=== PATIENT | female | born 1965 | race Caucasian/White ===

== ENCOUNTER 2020-09-12 09:56 | Emergency (ER) | payer OTHER ==
[~2020-09-12] VITALS: Ht 165.1 cm; Wt 127.0 kg
[~2020-09-12 09:56] MED LIST: ACET325 PO; ALBU4; ALBU90OI INH; AMOX500 PO; AZIT250 PO; AZIT500 PO; CIPHYDOTSU OT; CYCL10 PO; Cyclobenzaprine5 MG PO; GABA300 PO; HYDACE5 PO; HYDR1TAB94 PO; IBUP600 PO; LEVSOD125 PO; LEVSOD200 PO; METPRE4DP PO; NEOPOLHYDS OT; Norco 5-325 Ta1 EACH PO; OXYACE5T PO; PRIMATINE MIST; PSEU120ER PO; SIMV5 PO; SULTRIDS PO; TIOT18 INH; WARF7.5 PO
[2020-09-12] MEDS ORDERED: Percocet 5-3251 EACH PO (12:15)
== END 2020-09-12 13:24 | disposition home or self-care (01) ==
LOC: ER 09:56
DX: M79.672 Pain in left foot (principal); Z79.899 Other long term (current) drug therapy; Z88.6 Allergy status to analgesic agent
CPT/HCPCS: 73610; 73630; 93971; 99284-25; A9270

== ENCOUNTER 2021-09-18 10:04 | Emergency (ER) | payer OTHER ==
[~2021-09-18] VITALS: Ht 172.7 cm; Wt 127.0 kg
[~2021-09-18 10:04] MED LIST changes: +Percocet 5-3251 EACH PO
[2021-09-18] MEDS ORDERED: LISI20 PO (10:24)
[2021-09-18] MEDS ORDERED: HYDCHL25 PO (10:24)
[2021-09-18] MEDS ORDERED: TIZANIDINE HCL2 MG PO (10:25)
[2021-09-18] MEDS ORDERED: ZOCOR20 MG PO (10:25)
[2021-09-18 10:45] LABS: BASOPHILS ABSOLUTE AUTO 0.06 K/mm3 (0.00-0.23); BASOPHILS PERCENT AUTO 1 % (0-2); EOSINOPHILS ABSOLUTE AUTO 0.13 K/mm3 (0.00-0.68); EOSINOPHILS PERCENT AUTO 1 % (0-6); Hematocrit 32.2 % (33.0-51.0); Hemoglobin 10.7 g/dL (11.5-16.0); IMMATURE GRAN ABSOLUTE AUTO 0.07 K/mm3 (0.00-0.10); IMMATURE GRAN PERCENT AUTO 1 % (0-1); LYMPHOCYTES PERCENT AUTO 20 % (21-46); MONOCYTES PERCENT AUTO 9 % (4-13); Mean Corpuscular HGB 30.6 pg (26.0-34.0); Mean Corpuscular HGB Conc 33.2 g/dL (31.5-36.5); Mean Corpuscular Volume 92 fL (80-100); Mean Platelet Volume 10.2 fL (9.1-12.4); NEUTROPHILS ABSOLUTE AUTO 7.59 K/mm3 (1.96-9.15); NEUTROPHILS PERCENT AUTO 69 % (41-73); Platelet Count 278 K/mm3 (150-400); RDW Coefficient Variation 11.7 % (11.7-14.2); RDW Standard Deviation 39.2 fL (35.1-46.3); White Blood Cell Count 11.05 K/mm3 (4.00-11.30)
[2021-09-18 11:06] LABS: Alanine Aminotransfer (ALT/SGP 53 U/L (12-78); Albumin, Blood 3.4 g/dL (3.4-5.0); Albumin/Globulin Ratio 0.7 (0.8-1.8); Alk Phos 108 U/L (50-136); Anion Gap 6 mmol/L (6-16); Aspartate Aminotrans (AST/SGOT 102 U/L (12-37); Bilirubin, Total 0.7 mg/dL (0.1-1.0); Blood Urea Nitrogen 20 mg/dL (8-24); Bun/Creatinine Ratio 21.5 (12.0-20.0); CO2, Blood 29 mmol/L (21-32); Calcium, Blood 9.2 mg/dL (8.5-10.1); Chloride, Blood 99 mmol/L (98-108); Creatinine, Blood 0.93 mg/dL (0.40-1.00); Globulin, Blood 4.7 g/dL (2.2-4.0); Glomerular Filtration Rate >60 (60-); Glucose, Blood 124 mg/dL (70-99); Potassium, Blood 4.4 mmol/L (3.5-5.5); Sodium, Blood 134 mmol/L (136-145); Total Protein, Blood 8.1 g/dL (6.4-8.2)
[2021-09-18 13:06] LABS: Influenza A, PCR NEGATIVE (NEGATIVE); Influenza B, PCR NEGATIVE (NEGATIVE); Resp Syncytial Virus, PCR NEGATIVE (NEGATIVE); SARS-Cov-2 (COVID-19) PCR, MMC NEGATIVE (NEGATIVE)
[2021-09-18] MEDS ORDERED: OXYC5 PO (14:22)
[2021-09-18] MEDS ORDERED: AZIT250 PO (14:22)
== END 2021-09-18 14:34 | disposition home or self-care (01) ==
LOC: ER 10:04
PROVIDERS: Emergency Medicine
DX: J18.9 Pneumonia, unspecified organism (principal); Z20.822 Contact with and (suspected) exposure to COVID-19; E03.9 Hypothyroidism, unspecified; E78.5 Hyperlipidemia, unspecified; Z87.891 Personal history of nicotine dependence
CPT/HCPCS: 0241U; 71046; 71260; 80053; 83690; 84484; 85025; 85379; 93005; 93010; 96374; 96375; 99284-25; J1170; J2405; Q9967

== ENCOUNTER 2021-10-30 07:45 | Day surgery (SDC) | payer OTHER ==
[~2021-10-30] VITALS: Ht 172.7 cm; Wt 126.2 kg
[~2021-10-30 07:45] MED LIST changes: +HYDCHL25 PO; +LISI20 PO; +OXYC5 PO; +TIZANIDINE HCL2 MG PO; +ZOCOR20 MG PO
--- NOTE | 2021-10-30 08:19 | NUR ---
10/30/21 0819 Clementina Saunders 1 TRY RIGHT HAND NO FLASH 2 TRY RIGHT HAND NO FLASH
== END 2021-10-30 10:03 | disposition home or self-care (01) ==
LOC: ORSCSDS 07:45
PROVIDERS: Surgery
PROC: 0DBM8ZX Excision of Descending Colon, Via Natural or Artificial Opening Endoscopic, Diagnostic (ICD-10-PCS; principal; 2021-10-30 09:00)
DX: K59.04 Chronic idiopathic constipation (principal); D12.4 Benign neoplasm of descending colon; F41.9 Anxiety disorder, unspecified; I82.401 Acute embolism and thrombosis of unspecified deep veins of right lower extremity; J44.9 Chronic obstructive pulmonary disease, unspecified; Z87.891 Personal history of nicotine dependence; I10 Essential (primary) hypertension; E03.9 Hypothyroidism, unspecified; E66.9 Obesity, unspecified; Z68.41 Body mass index [BMI] 40.0-44.9, adult; Z79.899 Other long term (current) drug therapy
CPT/HCPCS: 88305; J2250; J2704; J7120

== ENCOUNTER 2022-06-14 07:31 | Emergency (ER) | payer OTHER ==
[~2022-06-14] VITALS: Ht 172.7 cm; Wt 127.0 kg
== END 2022-06-14 09:28 | disposition home or self-care (01) ==
LOC: ER 07:31
DX: K12.2 Cellulitis and abscess of mouth (principal); J45.909 Unspecified asthma, uncomplicated; Z88.8 Allergy status to other drugs, medicaments and biological substances; Z87.891 Personal history of nicotine dependence
CPT/HCPCS: 87430; J1100

== ENCOUNTER → 2023-04-28 | Outpatient (CLI) | payer OTHER | END | disposition home or self-care (01) | LOC: LAB 18:58 → LAB SHORT 18:58 | DX: Z20.818 Contact with and (suspected) exposure to other bacterial communicable diseases (principal) | CPT/HCPCS: 87081 ==

== ENCOUNTER 2023-08-05 10:59 | Emergency (ER) | payer OTHER ==
[~2023-08-05] VITALS: Ht 172.7 cm; Wt 126.1 kg
[2023-08-05 11:04] VITALS: BP 175/82
[2023-08-05 11:47] LABS: BASOPHILS ABSOLUTE AUTO 0.07 K/mm3 (0.00-0.23); BASOPHILS PERCENT AUTO 1 % (0-2); EOSINOPHILS ABSOLUTE AUTO 0.16 K/mm3 (0.00-0.68); EOSINOPHILS PERCENT AUTO 2 % (0-6); Hematocrit 38.4 % (33.0-51.0); Hemoglobin 12.8 g/dL (11.5-16.0); IMMATURE GRAN ABSOLUTE AUTO 0.08 K/mm3 (0.00-0.10); IMMATURE GRAN PERCENT AUTO 1 % (0-1); LYMPHOCYTES ABSOLUTE AUTO 2.34 K/mm3 (0.84-5.20); LYMPHOCYTES PERCENT AUTO 31 % (21-46); MONOCYTES ABSOLUTE AUTO 0.75 K/mm3 (0.16-1.47); MONOCYTES PERCENT AUTO 10 % (4-13); Mean Corpuscular HGB 32.1 pg (26.0-34.0); Mean Corpuscular HGB Conc 33.3 g/dL (31.5-36.5); Mean Corpuscular Volume 96 fL (80-100); Mean Platelet Volume 9.3 fL (9.1-12.4); NEUTROPHILS ABSOLUTE AUTO 4.05 K/mm3 (1.96-9.15); NEUTROPHILS PERCENT AUTO 54 % (41-73); Platelet Count 334 K/mm3 (150-400); RDW Coefficient Variation 13.1 % (11.7-14.2); RDW Standard Deviation 45.7 fL (35.1-46.3); Red Blood Cell Count 3.99 M/mm3 (3.80-5.20); White Blood Cell Count 7.45 K/mm3 (4.00-11.30)
[2023-08-05 11:59] LABS: Influenza A, PCR NEGATIVE (NEGATIVE); Influenza B, PCR NEGATIVE (NEGATIVE); Resp Syncytial Virus, PCR NEGATIVE (NEGATIVE); SARS-Cov-2 (COVID-19) PCR, MMC NEGATIVE (NEGATIVE)
[2023-08-05 12:02] LABS: Albumin, Blood 3.8 g/dL (3.4-5.0); Albumin/Globulin Ratio 0.9 (0.8-1.8); Bilirubin, Total 0.3 mg/dL (0.1-1.0); Bun/Creatinine Ratio 14.1 (12.0-20.0); Calcium, Blood 9.4 mg/dL (8.5-10.1); Creatinine, Blood 0.78 mg/dL (0.40-1.00); Globulin, Blood 4.2 g/dL (2.2-4.0); Potassium, Blood 4.4 mmol/L (3.5-5.5)
[2023-08-05] MEDS ORDERED: PRED20 PO (14:58)
== END 2023-08-05 15:42 | disposition home or self-care (01) ==
LOC: ER 10:59
PROVIDERS: Physician Assistant
DX: J44.89 Other specified chronic obstructive pulmonary disease (principal); E78.5 Hyperlipidemia, unspecified; Z87.891 Personal history of nicotine dependence; E03.9 Hypothyroidism, unspecified; Z79.899 Other long term (current) drug therapy; Z88.6 Allergy status to analgesic agent
CPT/HCPCS: 0241U; 71046; 80053; 85025; 93005; 93010; 99284; J7512

== ENCOUNTER 2024-03-03 06:40 | Day surgery (SDC) | payer OTHER ==
[2024-03-03] VITALS (7 sets, daily range): BP systolic 113–159; BP diastolic 41–88
[~2024-03-03] VITALS: Ht 170.2 cm; Wt 126.7 kg
[~2024-03-03 06:40] MED LIST changes: +Lactated Ringer's 1,000 ML IV SCH; +PRED20 PO
[2024-03-03] MEDS ORDERED: Midazolam HCl 1MG / ML 2ML Vial IV ONE (07:10)
[2024-03-03] MEDS ORDERED: PERCOCET 10-321 EA13 PO (07:21)
[2024-03-03] MEDS ORDERED: Bupivacaine 0.5% HCl 5 MG/ML 30MLVIAL ONE (07:22)
--- NOTE | 2024-03-03 07:59 | NUR ---
History, Chart, Medications and Allergies reviewed before start of procedure. Patient up to Ambulate independently with own front wheel walker & leg brace. Pre-Op teaching done. Pt verbalizes understanding. Patient confirms NPO status and agrees with scheduled surgery. Patient States Post-Procedure ride home has been arranged.
[2024-03-03] MEDS ORDERED: propofoL 20 ML IV ONE (08:01)
[2024-03-03] MEDS ORDERED: Dexamethasone Sod Phos 10 MG/ML 1ML VIAL ONE (08:20)
[2024-03-03] MEDS ORDERED: FentaNYL Citrate 50 MCG/ML 2 ML Injection ONE ×2 (08:20→08:51)
[2024-03-03] MEDS ORDERED: Ondansetron HCl 2 MG / ML 2ML Vial ONE (08:20)
--- NOTE | 2024-03-03 08:35 | NUR ---
03/03/24 0835 Jamia Alonzo NO INTRAOPERATIVE ANTIBIOTICS ORDERED
[2024-03-03] MEDS ORDERED: OxyCODONE 5 mg/Acetamin 325 mg TABLET PO PRN (09:10)
== END 2024-03-03 23:46 | disposition home or self-care (01) ==
LOC: ORSCMMR 06:40 → ORD 08:00 → ORSCMMR 08:00
PROVIDERS: Surgery
PROC: 06BY0ZC Excision of Hemorrhoidal Plexus, Open Approach (ICD-10-PCS; principal; 2024-03-03 08:00)
DX: K64.2 Third degree hemorrhoids (principal); K64.4 Residual hemorrhoidal skin tags; I10 Essential (primary) hypertension; E78.5 Hyperlipidemia, unspecified; E03.9 Hypothyroidism, unspecified; J44.9 Chronic obstructive pulmonary disease, unspecified; J45.909 Unspecified asthma, uncomplicated; F41.9 Anxiety disorder, unspecified; Z86.718 Personal history of other venous thrombosis and embolism; E66.9 Obesity, unspecified; Z68.41 Body mass index [BMI] 40.0-44.9, adult; Z79.899 Other long term (current) drug therapy; Z87.891 Personal history of nicotine dependence
CPT/HCPCS: 82947; 88304; A9270; J1100; J2250; J2405; J2704; J3010; J7120

== ENCOUNTER 2024-10-21 09:03 | Inpatient (IN) | payer OTHER ==
[~2024-10-21] VITALS: Ht 172.7 cm; Wt 122.8 kg
[~2024-10-21 09:03] MED LIST changes: -Lactated Ringer's 1,000 ML IV SCH; +PERCOCET 10-321 EA13 PO
[2024-10-21] MEDS ORDERED: Ipratropium/Albuterol SulF 2.5-0.5MG/3 ML Amp INH ONE (09:25)
[2024-10-21] MEDS ORDERED: MethylPREDNISolone Sod Succ 125 MG Vial IV ONE (09:25)
[2024-10-21] MEDS ORDERED: Morphine Sulfate 4 MG/1 ML Injection IV ONE (09:25)
[2024-10-21 09:56] LABS: Base Excess Venous 5.4 mmol/L; Bicarbonate Venous 27.7 mmol/L (24.0-30.0); PCO2 Venous 52.5 mmHg (38-42); pH Blood Venous 7.37 (7.34-7.37)
[2024-10-21 10:00] LABS: BASOPHILS PERCENT AUTO 1 % (0-2); EOSINOPHILS ABSOLUTE AUTO 0.43 K/mm3 (0.00-0.68); EOSINOPHILS PERCENT AUTO 4 % (0-6); Hematocrit 41.2 % (33.0-51.0); Hemoglobin 13.9 g/dL (11.5-16.0); IMMATURE GRAN ABSOLUTE AUTO 0.14 K/mm3 (0.00-0.10); IMMATURE GRAN PERCENT AUTO 1 % (0-1); LYMPHOCYTES ABSOLUTE AUTO 2.61 K/mm3 (0.84-5.20); LYMPHOCYTES PERCENT AUTO 26 % (21-46); MONOCYTES ABSOLUTE AUTO 0.98 K/mm3 (0.16-1.47); MONOCYTES PERCENT AUTO 10 % (4-13); Mean Corpuscular HGB 32.3 pg (26.0-34.0); Mean Corpuscular HGB Conc 33.7 g/dL (31.5-36.5); Mean Corpuscular Volume 96 fL (80-100); Mean Platelet Volume 9.2 fL (9.1-12.4); NEUTROPHILS ABSOLUTE AUTO 5.87 K/mm3 (1.96-9.15); NEUTROPHILS PERCENT AUTO 58 % (41-73); Platelet Count 298 K/mm3 (150-400); White Blood Cell Count 10.13 K/mm3 (4.00-11.30)
[2024-10-21 10:13] LABS: Albumin, Blood 4.1 g/dL (3.4-5.0); Albumin/Globulin Ratio 1.1 (0.8-1.8); Bilirubin, Total 0.5 mg/dL (0.1-1.0); Calcium, Blood 9.4 mg/dL (8.5-10.1); Creatinine, Blood 0.72 mg/dL (0.40-1.00); Globulin, Blood 3.9 g/dL (2.2-4.0); Potassium, Blood 4.1 mmol/L (3.5-5.5)
[2024-10-21] MEDS ORDERED: IPRAT-ALBUT 0.5-3 ML IH (10:21)
[2024-10-21] MEDS ORDERED: Synthroid/Levo0.2 MG (10:22)
[2024-10-21] MEDS ORDERED: NEURONTIN300 MG PO (10:23)
[2024-10-21 10:41] LABS: Influenza A, PCR NEGATIVE (NEGATIVE); Influenza B, PCR NEGATIVE (NEGATIVE); Resp Syncytial Virus, PCR NEGATIVE (NEGATIVE); SARS-Cov-2 (COVID-19) PCR, MMC NEGATIVE (NEGATIVE)
[2024-10-21] MEDS ORDERED: Ipratropium/Albuterol SulF 2.5-0.5MG/3 ML Amp INH SCH ×2 (11:20→11:40)
[2024-10-21] MEDS ORDERED: Albuterol 2.5 MG/3 ML VIAL INH PRN (11:40)
[2024-10-21] MEDS ORDERED: OxyCODONE 10/Acetamin 325 TABLET PO PRN (11:45)
[2024-10-21] MEDS ORDERED: Ipratropium/Albuterol SulF 2.5-0.5MG/3 ML Amp INH PRN (11:50)
[2024-10-21 13:57] VITALS: BP 166/80
[2024-10-21] MEDS ORDERED: Gabapentin 300 MG Cap PO SCH (14:00)
[2024-10-21 14:15] LABS: pH Blood Venous 7.37 (7.34-7.37)
[2024-10-21 14:16] LABS: Base Excess Venous 3.4 mmol/L; Bicarbonate Venous 26.1 mmol/L (24.0-30.0); PCO2 Venous 49.3 mmHg (38-42)
[2024-10-21] MEDS ORDERED: Gabapentin 300 MG Cap PO PRN (14:26)
--- NOTE | 2024-10-21 17:50 | NUR ---
PT PLEASANT SINCE ADMIT. A/O X4, TALKATIVE. NO C/O PAIN AT THIS TIME. H/R REG, NO MURMUR NOTED. NO TELE. LUNGS WHEEZY IN BASES AT ADMIT. BREATHING TREATMENT THIS AFTERNOON. INDEPENDANT TO BATHROOM BUT NEEDS RT FOOT BRACE AND SHOE. S/O IN TO VISIT TODAY. NO NEW CONCERNS NOTED. BED IN LOW POSITION, CALLLITE IN REACH, CALLS APPROP
[2024-10-21] MEDS ORDERED: MethylPREDNISolone Sod Succ 125 MG Vial IV SCH (18:00)
--- NOTE | 2024-10-21 18:02 | NUR ---
ADMIT SKIN CHECK PERFFORMED WITH SUE BACON. SKIN CLEAR
[2024-10-21 18:11] VITALS: BP 145/82
[2024-10-21 20:14] VITALS: BP 146/87
[2024-10-21] MEDS ORDERED: TiZANidine HCl 4 MG Tab PO SCH (21:00)
[2024-10-22] MEDS ORDERED: Ipratropium/Albuterol SulF 2.5-0.5MG/3 ML Amp INH SCH (01:30)
[2024-10-22 04:33] VITALS: BP 156/74
[2024-10-22 05:54] LABS: BASOPHILS ABSOLUTE AUTO 0.02 K/mm3 (0.00-0.23); BASOPHILS PERCENT AUTO 0 % (0-2); EOSINOPHILS PERCENT AUTO 0 % (0-6); Hemoglobin 13.5 g/dL (11.5-16.0); IMMATURE GRAN ABSOLUTE AUTO 0.14 K/mm3 (0.00-0.10); IMMATURE GRAN PERCENT AUTO 1 % (0-1); LYMPHOCYTES ABSOLUTE AUTO 1.26 K/mm3 (0.84-5.20); LYMPHOCYTES PERCENT AUTO 11 % (21-46); MONOCYTES ABSOLUTE AUTO 0.25 K/mm3 (0.16-1.47); MONOCYTES PERCENT AUTO 2 % (4-13); Mean Corpuscular HGB 32.4 pg (26.0-34.0); Mean Corpuscular HGB Conc 33.8 g/dL (31.5-36.5); Mean Corpuscular Volume 96 fL (80-100); Mean Platelet Volume 9.5 fL (9.1-12.4); NEUTROPHILS ABSOLUTE AUTO 10.29 K/mm3 (1.96-9.15); NEUTROPHILS PERCENT AUTO 86 % (41-73); Platelet Count 298 K/mm3 (150-400); RDW Coefficient Variation 11.9 % (11.7-14.2); RDW Standard Deviation 41.3 fL (35.1-46.3); Red Blood Cell Count 4.17 M/mm3 (3.80-5.20); White Blood Cell Count 11.96 K/mm3 (4.00-11.30)
[2024-10-22] MEDS ORDERED: Levothyroxine Sodium 0.1 MG Tab PO SCH (06:00)
[2024-10-22 06:17] LABS: Bun/Creatinine Ratio 23.2 (12.0-20.0); Calcium, Blood 9.8 mg/dL (8.5-10.1); Creatinine, Blood 0.73 mg/dL (0.40-1.00); Potassium, Blood 3.8 mmol/L (3.5-5.5)
[2024-10-22 07:36] VITALS: BP 157/80
[2024-10-22] MEDS ORDERED: Enoxaparin 40 MG/0.4 ML SYR SC SCH (09:00)
[2024-10-22] MEDS ORDERED: HydroCHLOROthiazide 25 mg Tab PO SCH (09:00)
[2024-10-22 15:26] VITALS: BP 130/76
[2024-10-22] MEDS ORDERED: PRED20 PO (17:27)
--- NOTE | 2024-10-22 18:12 | NUR ---
DISCHARGE REVIEWED WITH PT. SHE VERBALIZED UNDERSTANDING MEDS AND INST. IV PULLED BY AIDE. NO TELE. PT WHEELED TO DOOR AT 1600.
== END 2024-10-22 17:50 | disposition home or self-care (01) | DRG 189 ==
LOC: ER 09:03 → ERHOLD 09:04 → MEDS 13:55
PROVIDERS: Emergency Medicine; Physician Assistant; ADMIT Family Medicine
DX: J96.01 Acute respiratory failure with hypoxia (principal); J44.1 Chronic obstructive pulmonary disease with (acute) exacerbation; E03.9 Hypothyroidism, unspecified; Z66 Do not resuscitate; E78.5 Hyperlipidemia, unspecified; G89.29 Other chronic pain; I10 Essential (primary) hypertension; Z79.899 Other long term (current) drug therapy; Z79.890 Hormone replacement therapy; Z79.51 Long term (current) use of inhaled steroids; Z79.891 Long term (current) use of opiate analgesic; Z88.8 Allergy status to other drugs, medicaments and biological substances; Z98.51 Tubal ligation status; Z87.19 Personal history of other diseases of the digestive system; Z98.890 Other specified postprocedural states; Z87.891 Personal history of nicotine dependence; Z87.01 Personal history of pneumonia (recurrent)
CPT/HCPCS: 0241U; 36415; 71045; 80048; 80053; 82803; 83880; 84484; 85025; 85379; 93005; 93010; 94640; 94664; 94760; 96372; 96374; 96375; 96376; 99285-25; A9270; G0378; J1650; J2270; J2919

== ENCOUNTER 2024-12-14 09:38 | Day surgery (SDC) | payer OTHER ==
[~2024-12-14] VITALS: Ht 172.7 cm; Wt 127.4 kg
[~2024-12-14 09:38] MED LIST changes: +Balanced Salt Epinephrine Irrigation Solution 500 mL IR SCH; +Diazepam 5 MG Tab PO PRN; +Diazepam 5 MG Tab PO SCH; +IPRAT-ALBUT 0.5-3 ML IH; +Lidocaine HCl/Pf 1% 5 ML VIAL ONE; +Lidocaine HCl/Pf 1% 5 ML VIAL XX SCH; +Moxifloxacin HCL 0.5 MG/0.1 ML 0.4MLSYR RIGHTEYE SCH; +NEURONTIN300 MG PO; +Ondansetron 4 MG SoluTab MM PRN; +PHENYLEPHRINE\\TROPICAMIDE\\TETRACAINE OPHTHALMIC DILATING SOLN RIGHTEYE PRN; +Povidone-Iodine 450 DROP/30 ML Solution ONE; +Povidone-Iodine 450 DROP/30 ML Solution RIGHTEYE SCH; +Synthroid/Levo0.2 MG; +TRELEGY ELLIPT1 EACH INH; +Tetracaine HCl/Pf 0.5% Opth Soln 4 ml ONE; +Triamcinolone Inj Susp 40 MG / ML 1ML Vial INJ SCH; +Triamcinolone Inj Susp 40 MG / ML 1ML Vial ONE
[2024-12-14] MEDS ORDERED: Diazepam 10 MG Tab ONE (09:45)
--- NOTE | 2024-12-14 10:09 | NUR ---
12/14/24 Valeria9 Elaine Bell 1005: INITIAL ANXIETY 03/21 1006: 10 MG VALIUM PO GIVEN PER ORDERS. PULSE OXIMETER IN PLACE. CALL LIGHT WITHIN REACH.
[2024-12-14] MEDS ORDERED: REPATHA SU140 MG/1 M SQ (10:14)
--- NOTE | 2024-12-14 10:46 | NUR ---
12/14/24 1046 Rica Howe BP-148/78 P-84 SPO2-100% 10L BLOW BY O2
[2024-12-14 10:59] VITALS: BP 135/84
== END 2024-12-14 11:10 | disposition home or self-care (01) ==
LOC: ORSCSDS 09:38
PROVIDERS: Ophthalmology
PROC: 08RJ3JZ Replacement of Right Lens with Synthetic Substitute, Percutaneous Approach (ICD-10-PCS; principal; 2024-12-14 11:00)
DX: H25.811 Combined forms of age-related cataract, right eye (principal); Z96.1 Presence of intraocular lens; F41.9 Anxiety disorder, unspecified; J45.909 Unspecified asthma, uncomplicated; E78.5 Hyperlipidemia, unspecified; I10 Essential (primary) hypertension; E03.9 Hypothyroidism, unspecified; Z79.899 Other long term (current) drug therapy
CPT/HCPCS: A9270; J2003; J3301; V2632